=== PATIENT | male | born 1990 | race Two or more races ===

== ENCOUNTER 2019-07-04 20:34 | Emergency (ER) | payer SELFPAY ==
[2019-07-04] MEDS ORDERED: NS 0.9% 1000 ML** 1,000 ML IV ONE (20:58)
--- NOTE | 2019-07-04 21:00 | ED ---
Influenza-Like Illness - HPI Summary HPI Summary: 29-year-old male with a significant past medical history of influenza diagnosed 2 days ago presents to the emergency department today with cough, fatigue, generalized pain, nausea, lightheadedness and is seeking symptom management and relief. The patient is taking Tamiflu. Patient is not using accessory muscles to breathe and is able to speak in full and broken sentences. Patient does not appear toxic. Patient otherwise feels well and denies rash, diarrhea, vomiting , chest pain, fever. Patient states his last dose of Tylenol was yesterday. - History of Current Complaint Chief Complaint: EDFluSymptoms Time Seen by Provider: 07/04/19 20:44 Hx Obtained From: Patient Onset/Duration: Gradual Onset - Allergy/Home Medications Allergies/Adverse Reactions: Allergies Allergy/AdvReac Type Severity Reaction Status Date / Time aspirin Allergy Swelling Verified 07/04/19 21:36 Home Medications: Home Medications Acetaminophen TAB* [Tylenol TAB*] 650 mg PO Q4H PRN 07/04/19 [History Confirmed 07/04/19] PMH/Surg Hx/FS Hx/Imm Hx Infectious Disease History: No Infectious Disease History: Denies: Traveled Outside the [place] in Last 30 Days Review of Systems Positive: Fever, Fatigue Positive: Nasal Discharge Positive: Cough Gastrointestinal: Negative Genitourinary: Negative Musculoskeletal: Negative Skin: Negative Neurological/Mental Status: Negative Psychological: Normal All Other Systems Reviewed And Are Negative: Yes Physical Exam Triage Information Reviewed: Yes Vital Signs On Initial Exam: Initial Vitals Temp Pulse Resp BP Pulse Ox 97.0 F 87 18 124/69 98 07/04/19 20:38 07/04/19 20:38 07/04/19 20:38 07/04/19 20:38 07/04/19 20:38 Vital Signs Reviewed: Yes Appearance: Positive: Well-Appearing, No Pain Distress, Well-Nourished Skin: Positive: Warm, Skin Color Reflects Adequate Perfusion Eyes: Positive: EOMI, EVONNE ENT: Positive: Hearing grossly normal Respiratory/Lung Sounds: Positive: Clear to Auscultation, Breath Sounds Present Cardiovascular: Positive: RRR, S1, S2 Abdomen Description: Positive: Nontender, Soft Bowel Sounds: Positive: Present Musculoskeletal: Positive: Strength/ROM Intact Neurological: Positive: Sensory/Motor Intact, Alert, Oriented to Person Place, Time, Speech Normal Psychiatric: Positive: Normal, Affect/Mood Appropriate AVPU Assessment: Alert Procedures - Sedation Patient Received Moderate/Deep Sedation with Procedure: No Diagnostics - Vital Signs Vital Signs Temp Pulse Resp BP Pulse Ox 07/04/19 20:38 97.0 F 87 18 124/69 98 - Laboratory Result Diagrams: 07/04/19 21:15 07/04/19 21:15 Lab Statement: Any lab studies that have been ordered have been reviewed, and results considered in the medical decision making process. Flu Symptom Course/Dx - Course Course Of Treatment: Patient was evaluated in the emergency department today for influenza symptoms. Vitals noted and stable. Patient was given 1 L of normal saline via IV for fluid resuscitation. Laboratory studies returned showing no significant abnormalities with no evidence of anemia, electronic disturbance, leukocytosis. Patient recently had chest x-ray which was negative for pathology. Patient's mild elevation in heart rate resolved after 1 L of normal saline. Patient was nontoxic and had no sequela of influenza and was discharged to outpatient follow-up. - Diagnoses Differential Diagnosis/HQI/PQRI: Positive: Bronchitis, Influenza, Pneumonia, RSV , Upper Respiratory Infection Provider Diagnoses: Influenza Discharge ED - Sign-Out/Discharge Documenting (check all that apply): Patient Departure - Discharge Plan Condition: Stable Disposition: HOME Patient Education Materials: Influenza (ED) Forms: *Work Release Referrals: [facility] [Outside] - 3 Days No Primary Care Phys,[facility] [Primary Care Provider] - Additional Instructions: You were seen in the emergency department today and diagnosed with influenza. This is an upper respiratory virus which causes cough, muscle aches, fever, nausea, trouble breathing. Viruses are self-limiting and will go away on their own. Be sure to stay hydrated and rest. You may take [id number] decongestants as needed for your symptoms as well as NyQuil at night to improve sleep. Take Tylenol every 6 hours as needed for fever. Please see your primary care physician in 5 days for further evaluation and management. Please do not return to work or school until 24 hours after your fever breaks. Please return to the emergency department immediately if you develop any new or worsening symptoms. - Billing Disposition and Condition Condition: STABLE Disposition: Home
[2019-07-04 21:23] LABS: ABS Eosinophils 0.2 10^3/ul (0-0.6); ABS Lymphocytes 2.5 10^3/ul (1.0-4.8); ABS Monocytes 0.3 10^3/ul (0-0.8); ABS Neutrophils 1.3 10^3/ul (1.5-7.7); Eosinophil % 3.5 %; Hematocrit 39 % (42-52); Hemoglobin 13.3 g/dL (14.0-18.0); Lymphocyte % 58.5 %; Mean Corpuscular HGB Conc 34 g/dL (31-36); Mean Corpuscular Hemoglobin 27 pg (27-31); Mean Corpuscular Volume 78 fL (80-94); Nucleated Red Blood Cells % 0.2; Platelet Count 207 10^3/uL (150-450); Red Blood Count 4.99 10^6 /uL (4.18-5.48); Red Cell Distribution Width 14 % (10-15); White Blood Count 4.3 10^3/uL (3.5-10.8)
[2019-07-04 21:40] LABS: Albumin 4.4 g/dL (3.2-5.2); Albumin/Globulin Ratio 1.4 (1-3); Calcium 8.6 mg/dL (8.6-10.3); EGFR African American 106.9 (>60); EGFR Non-African American 88.3 (>60); Globulin 3.1 g/dL (2-4); Potassium 3.7 mmol/L (3.5-5.0); Total Bilirubin 0.6 mg/dL (0.2-1.0); Total Protein 7.5 g/dL (6.4-8.9)
[2019-07-05 00:11] VITALS: BP 113/70
== END 2019-07-05 00:10 | disposition home or self-care (01) ==
LOC: ED 20:34
DX: J11.1 Influenza due to unidentified influenza virus with other respiratory manifestations (principal); Z88.6 Allergy status to analgesic agent
CPT/HCPCS: 36415; 80053; 85025; 96360; 99283